=== PATIENT | female | born 1940 | race African-American/Black ===

== ENCOUNTER 2019-04-10 02:28 | Emergency (ER) | payer OTHER ==
--- NOTE | 2019-04-10 02:35 | PDOC ---
History of Present Illness - General Chief Complaint: Headache Stated Complaint: HEADACHE Time Seen by Provider: 04/10/19 02:34 History Source: Patient Exam Limitations: No Limitations - History of Present Illness Initial Comments: 04/10/19 03:01 79 year old female with PMH DM, arthritis, DVT, PVD, HTN BIBA to ED for headache since Wednesday. Pt admitted to nausea. Pt reported she took Tylenol extra strength (5 pills) at 2300 last night. Pt reported her headache wraps around her head like a band, intermittently alleviated by Tylenol, no aggravating factors. Pt denied weakness, numbness, tingling, chest pain, shortness of breath. Pt reported medication noncompliance, stating "I cant remember if Jesica taken my meds in the last couple days". Past History - Past Medical History Allergies/Adverse Reactions: Allergies Allergy/AdvReac Type Severity Reaction Status Date / Time ciprofloxacin [From Cipro] Allergy Verified 04/10/19 04:41 Home Medications: Ambulatory Orders Losartan/Hydrochlorothiazide [Losartan-Hctz 100-25 mg Tab] 1 each PO DAILY 04/10 Review of Systems - Review of Systems Able to Perform ROS?: Yes Comments:: 04/10/19 02:38 General: denied fever, chills, generalized weakness. HEENT: denied sore throat, rhinorrhea, ear pain. Heart: denied chest pain, palpitations, syncope, diaphoresis. Respiratory: denied shortness of breath, cough, sputum production, hemoptysis. Abdomen: admitted to nausea. denied abdominal pain, vomiting, diarrhea, constipation, blood in stool. : denied dysuria, increased urinary frequency, hematuria, urinary incontinence , flank pain. Back: denied back pain. Musculoskeletal: denied joint pain, muscle pain, joint swelling. Neurological: admitted to headache. denied dizziness, numbness, tingling, weakness. Skin: denied rash, laceration, abrasion. *Physical Exam - Physical Exam Comments: 04/10/19 02:39 Constitutional: Well-nourished, Well-developed, appearing stated age. HEENT: head is normocephalic, atraumatic. EOMI. PERRLA. Neck: supple. Full ROM. Heart: regular rhythm. systolic murmur. Lungs: bibasilar dry crackles. no wheezing. speaking full sentences. no stridor. Abdomen: soft, nontender. normal bowel sounds. no rebound, guarding, masses. Extremities: peripheral pulses intact. no lower extremity edema. Neurological: alert. oriented x3. CN2-12 intact. 5/5 strength all extremities. full sensation all extremities and bilateral face. no ataxia. gait not observed. Psych: awake, alert, oriented x3. follows commands. answers questions appropriately. ED Treatment Course - LABORATORY CBC & Chemistry Diagram: 04/10/19 03:00 04/10/19 03:00 Medical Decision Making - Medical Decision Making 04/10/19 02:39 79 year old female with above PMH presented to ED for headache. Pt reported she does not know any of her medications and gave the list to EMS. Pt reported her pharmacy is [facility], which is closed. Initial Vital Signs Temp Pulse Resp BP Pulse Ox 98.0 F 75 18 230/92 H 98 04/10/19 02:28 04/10/19 02:28 04/10/19 02:28 04/10/19 02:28 04/10/19 02:28 Afebrile. No tachycardia. No tachypnea. Hypertensive. No hypoxia on room air. Labs ordered: CBC, CMP, troponin, BNP Imaging ordered: CT head noncontrast Medications ordered: labetalol 10 mg IV once EKG performed at 0241: rate 78, regular rhythm, left axis, normal intervals, lateral flipped Ts. -No prior to compare -Pt reported she has an abnormal EKG at baseline, usually carries a card showing her baseline, but today forgot the card and does not know what the EKG looks like normally 04/10/19 03:41 CBC WBC 5.8 K/mm3 (4.0-10.0) 04/10/19 03:00 RBC 3.91 M/mm3 (3.60-5.2) 04/10/19 03:00 Hgb 11.7 GM/dL (10.7-15.3) 04/10/19 03:00 Hct 36.0 % (32.4-45.2) 04/10/19 03:00 MCV 92.0 fl (80-96) 04/10/19 03:00 MCH 29.9 pg (25.7-33.7) 04/10/19 03:00 MCHC 32.5 g/dl (32.0-36.0) 04/10/19 03:00 RDW 13.9 % (11.6-15.6) 04/10/19 03:00 Plt Count 289 K/MM3 (134-434) 04/10/19 03:00 MPV 7.9 fl (7.5-11.1) 04/10/19 03:00 Absolute Neuts (auto) 4.2 K/mm3 (1.5-8.0) 04/10/19 03:00 Neutrophils % 72.7 % (42.8-82.8) 04/10/19 03:00 Lymphocytes % 19.7 % (8-40) 04/10/19 03:00 Monocytes % 5.4 % (3.8-10.2) 04/10/19 03:00 Eosinophils % 1.4 % (0-4.5) 04/10/19 03:00 Basophils % 0.8 % (0-2.0) 04/10/19 03:00 Nucleated RBC % 0 % (0-0) 04/10/19 03:00 No leukocytosis. No anemia. CMP Sodium 140 mmol/L (136-145) 04/10/19 03:00 Potassium 4.1 mmol/L (3.5-5.1) 04/10/19 03:00 Chloride 108 mmol/L (98-107) H 04/10/19 03:00 Carbon Dioxide 23 mmol/L (21-32) 04/10/19 03:00 Anion Gap 9 MMOL/L (8-16) 04/10/19 03:00 BUN 13.7 mg/dL (7-18) 04/10/19 03:00 Creatinine 1.1 mg/dL (0.55-1.3) 04/10/19 03:00 Est GFR (CKD-EPI)AfAm 55.30 04/10/19 03:00 Est GFR (CKD-EPI)NonAf 47.71 04/10/19 03:00 Random Glucose 179 mg/dL (74-106) H 04/10/19 03:00 Calcium 8.9 mg/dL (8.5-10.1) 04/10/19 03:00 Total Bilirubin 0.4 mg/dL (0.2-1) 04/10/19 03:00 AST 14 U/L (15-37) L 04/10/19 03:00 ALT 21 U/L (13-61) 04/10/19 03:00 Alkaline Phosphatase 121 U/L (45-117) H 04/10/19 03:00 Troponin I < 0.02 ng/ml (0.00-0.05) 04/10/19 03:00 B-Natriuretic Peptide 417.7 pg/ml (5-450) 04/10/19 03:00 Total Protein 7.0 g/dl (6.4-8.2) 04/10/19 03:00 Albumin 3.8 g/dl (3.4-5.0) 04/10/19 03:00 No electrolyte abnormalities. No JOSE. No transaminitis. Troponin undetectable. BNP wnl. 04/10/19 03:56 Vital Signs Temperature 98.0 F 04/10/19 02:28 Pulse Rate 72 04/10/19 03:50 Respiratory Rate 20 04/10/19 03:50 Blood Pressure 173/75 H 04/10/19 03:50 HTN resolving with labetalol. No bradycardia. 04/10/19 04:03 CT head images reviewed - no large hematoma identified. -Pending official report 04/10/19 04:54 Pt reassessed, reported resolution of headache. Reported she was able to sleep. Pending CT head. Vital Signs Temperature 98.0 F 04/10/19 02:28 Pulse Rate 76 04/10/19 04:45 Respiratory Rate 16 04/10/19 04:45 Blood Pressure 189/94 H 04/10/19 04:45 O2 Sat by Pulse Oximetry (%) 98 04/10/19 02:28 HTN returning. Medications ordered: labetalol 10 mg IV once 04/10/19 05:04 CT head report: EXAM: CT HEAD WITHOUT CONTRAST No acute brain parenchymal abnormality. No hemorrhage, mass or acute territorial infarct. Chronic infarct right basal ganglia. Age-related involutional changes and chronic small vessel ischemic changes. Clear visualized paranasal sinuses. Visualized mastoid air cells clear. THIS DOCUMENT HAS BEEN ELECTRONICALLY SIGNED Leydi Hunter M.D. 04/10/2019 04:55 EST 04/10/19 05:40 Vital Signs Pulse Rate 76 04/10/19 05:35 Respiratory Rate 20 04/10/19 05:35 Blood Pressure 173/76 H 04/10/19 05:35 O2 Sat by Pulse Oximetry (%) 99 04/10/19 05:35 Pt informed of results and need for follow up with PCP. Pt discharged. *DC/Admit/Observation/Transfer Diagnosis at time of Disposition: Headache, Hypertension - Discharge Dispostion Disposition: HOME Condition at time of disposition: Improved Decision to Admit order: No - Referrals Referrals: Fatuma Burkett MD [Primary Care Provider] - - Patient Instructions Printed Discharge Instructions: DI for High Blood Pressure, DI for Headache, How to Monitor Your Blood Pressure at Home Additional Instructions: You were seen today for a headache. Your blood pressure was high. Your lab work was normal. Your Head Cat-scan was normal. Take all your prescribed medications. Follow up with your primary care doctor within 3 days. Your care is not complete until you follow up. Call first thing in the morning and secure the earliest appointment available. Bring all paperwork given to you today. Bring all medication bottles you are currently taking. Return to the Emergency Department for increasing pain, chest pain, shortness of breath, severe abdominal pain, severe back pain, swelling of your legs, lightheadedness like you may pass out, blood in urine or any other new, worsening or concerning symptoms. - Post Discharge Activity
[2019-04-10 02:44] VITALS: TEMP 98; BMI 27.3
[2019-04-10 03:08] LABS: BASO % 0.8 % (0-2.0); EOS % 1.4 % (0-4.5); HEMOGLOBIN 11.7 GM/dL (10.7-15.3); LYMPH % 19.7 % (8-40); MCH 29.9 pg (25.7-33.7); MCHC 32.5 g/dl (32.0-36.0); MEAN PLT VOLUME 7.9 fl (7.5-11.1); MONO % 5.4 % (3.8-10.2); NEUT % 72.7 % (42.8-82.8); PLATELET COUNT 289 K/MM3 (134-434); RBC 3.91 M/mm3 (3.60-5.2); RDW 13.9 % (11.6-15.6); WHITE BLOOD COUNT 5.8 K/mm3 (4.0-10.0)
[2019-04-10 03:22] LABS: INR 1.12 (0.83-1.09); PROTHROMBIN TIME (PATIENT) 13.2 SEC (9.7-13.0)
[2019-04-10 03:25] LABS: ACTIVATED PTT 36.7 SECONDS (25.2-36.5)
[2019-04-10] MEDS ORDERED: LABETALOL HCL 5 MG/1 ML (100MG/20 ML VIAL) IVPUSH ONE ×2 (03:26→04:55)
--- NOTE | 2019-04-10 03:31 | PDOC ---
Attending Attestation - Resident Resident Name: CristianeAmrita - ED Attending Attestation I have performed the following: I have examined & evaluated the patient, The case was reviewed & discussed with the resident, I agree w/resident's findings & plan, Exceptions are as noted - HPI HPI: 04/10/19 06:51 79 F pmh DM, HTN, here with headache for 2 days, described as tightness wrapping around her head. Non-exertional, gradual onset. No other complaints. - Physicial Exam PE: 04/10/19 06:52 Agree with exam as documented by resident - Medical Decision Making 04/10/19 06:53 Headache, low risk features but in context of high blood pressure eval for end organ damage dispo per clinical course No signs of acute sequelae due to htn dc with pcp f/u for htn management
[2019-04-10] MEDS ORDERED: LABETALOL HCL 5 MG/1 ML (200MG/40ML VIAL) IVPB ONE (03:34)
[2019-04-10 03:35] LABS: ALBUMIN 3.8 g/dl (3.4-5.0); ALK PHOS 121 U/L (45-117); ANION GAP 9 MMOL/L (8-16); BILIRUBIN,TOTAL 0.4 mg/dL (0.2-1); BLOOD UREA NITROGEN 13.7 mg/dL (7-18); CALCIUM 8.9 mg/dL (8.5-10.1); CHLORIDE 108 mmol/L (98-107); CO2 23 mmol/L (21-32); CREATININE 1.1 mg/dL (0.55-1.3); GLUCOSE,RANDOM 179 mg/dL (74-106); POTASSIUM 4.1 mmol/L (3.5-5.1); SGOT/AST 14 U/L (15-37); SGPT/ALT 21 U/L (13-61); SODIUM 140 mmol/L (136-145)
[2019-04-10 04:46] VITALS: PULSE 76
[2019-04-10 06:23] VITALS: BP 173/82
--- NOTE | 2019-04-10 09:33 | EKG ---
Test Reason : Blood Pressure : / mmHG Vent. Rate : 078 BPM Atrial Rate : 078 BPM P-R Int : 170 ms QRS Dur : 098 ms QT Int : 394 ms P-R-T Axes : 026 -20 106 degrees QTc Int : 449 ms NORMAL SINUS RHYTHM POSSIBLE LEFT ATRIAL ENLARGEMENT LEFT VENTRICULAR HYPERTROPHY T WAVE ABNORMALITY, CONSIDER LATERAL ISCHEMIA ABNORMAL ECG NO PREVIOUS ECGS AVAILABLE Confirmed by COURTNEY HERRERA MD ([id number]) on 04/10/2019 9:33:26 AM Referred By: Confirmed By:COURTNEY HERRERA MD
== END 2019-04-10 06:40 | disposition home or self-care (01) ==
LOC: JER 02:28
PROC: 3E033GC Introduction of Other Therapeutic Substance into Peripheral Vein, Percutaneous Approach (ICD-10-PCS; principal; 2019-04-10)
DX: I10 Essential (primary) hypertension (principal); R51 Headache
CPT/HCPCS: 36415; 70450-TC; 80053; 83880; 84484; 85025; 85610; 85730; 93005; 93010; 96374; 96376; 99282-25